=== PATIENT | female | born 1995 | race African-American/Black ===

== ENCOUNTER 2025-03-12 06:10 | Emergency (ER) | payer OTHER ==
[~2025-03-12] VITALS: Ht 165.1 cm; Wt 54.4 kg
[2025-03-12 06:26] VITALS: BP 113/75
[2025-03-12] MEDS ORDERED: ONDANSETRON 4 MG/2 ML VIAL ONE (07:01)
[2025-03-12 07:21] LABS: PLATELET COUNT (AUTO) 255 K/uL (179-408); RED BLOOD CELL COUNT(AUTO) 4.42 MIL/uL (3.63-4.92); RED CELL DISTRIBUTION WIDTH 14.8 % (12.3-17.7); WHITE BLOOD COUNT (AUTO) 6.0 K/uL (3.8-11.8)
[2025-03-12] MEDS: IV NORMAL SALINE 1000 ML BAG IV ONE (07:21)
[2025-03-12] MEDS: ONDANSETRON 4 MG/2 ML VIAL IV ONE (07:21)
[2025-03-12 07:38] LABS: *BILIRUBIN,URIN NEGATIVE (NEGATIVE); *BLOOD, URINE NEGATIVE (NEGATIVE); *CLARITY,URINE CLEAR (CLEAR); *COLOR,URINE YELLOW (YELLOW); *KETONES,URINE 4+ (NEGATIVE); *PROTEIN,URINE NEGATIVE (NEGATIVE); *UROBILINOGEN,URINE 0.2 E.U./dl (NORMAL); LEUKOCYTE ESTERASE ,URINE 1+ (NEGATIVE); NITRITE, URINE NEGATIVE (NEGATIVE); UGLUCOSE NEGATIVE (NEGATIVE)
[2025-03-12 07:47] LABS: *AMPHETAMINE, URINE NEGATIVE (NEGATIVE); *BARBITURATE, URINE NEGATIVE (NEGATIVE); *BENZODIAZEPINE, URINE NEGATIVE (NEGATIVE); *CANNABINOID, URINE POSITIVE (NEGATIVE); *COCCAINE, URINE NEGATIVE (NEGATIVE); *OPIATE, URINE NEGATIVE (NEGATIVE); *PHENCYCLIDINE SCREEN,URINE NEGATIVE (NEGATIVE); FENTANYL, URINE NEGATIVE (NEGATIVE)
[2025-03-12 07:48] LABS: *URINE HCG, QUAL NEGATIVE (NEGATIVE)
[2025-03-12 08:00] LABS: CREATININE 0.7 mg/dL (0.6-1.3); SODIUM SERUM 143.0 mmol/L (136-145); UREA NITROGEN, BLOOD 9.0 mg/dL (7-18)
[2025-03-12 08:09] LABS: ETHANOL < 3 MG/DL (0-10)
[2025-03-12 08:10] LABS: ASPARTATE AMINOTRANSFERASE 8.0 U/L (15-37); TOTAL PROTEIN, SERUM 7.4 g/dL (6.4-8.2)
[2025-03-12] MEDS ORDERED: ONDA4TAB5 PO (09:12)
[2025-03-12 09:36] VITALS: BP 129/79; O2SAT 100
[2025-03-12 09:40] LABS: SQUAMOUS EPITHELIAL CELL,UR FEW /HPF (NONE SEEN)
== END 2025-03-12 09:34 | disposition home or self-care (01) ==
LOC: ER 06:21
DX: S09.8XXA Other specified injuries of head, initial encounter (principal); R55 Syncope and collapse; R07.9 Chest pain, unspecified; R23.2 Flushing; E86.0 Dehydration; G43.909 Migraine, unspecified, not intractable, without status migrainosus; R11.2 Nausea with vomiting, unspecified; Z79.899 Other long term (current) drug therapy; Y08.89XA Assault by other specified means, initial encounter; Y93.89 Activity, other specified; Y92.89 Other specified places as the place of occurrence of the external cause; Y99.8 Other external cause status
CPT/HCPCS: 80076; 80048; 81001; 82962; 84703; 83690; 84443; 85025; 87086; 36415; 71045; 93005; 99285; 96361; 96374; 80320; 80307; J2405; J7040; A4606; A4663; G0480